=== PATIENT | female | born 2000 | race Caucasian/White ===

== ENCOUNTER 2019-12-21 13:09 | Emergency (ER) | payer OTHER, SELFPAY ==
[2019-12-21 13:19] VITALS: BP 128/82; PULSE 113; RESP 16; TEMP 36.6; O2SAT 100
--- NOTE | 2019-12-21 13:30 | ED.URI ---
HPI - URI/Sore Throat General Chief Complaint: Upper Respiratory Infection Stated Complaint: sore throat cough and aches Time Seen by Provider: 12/21/19 13:32 Source: patient History of Present Illness HPI Narrative: PATIENT PRESENTS WITH SORE THROAT NO TROUBLE SWALLOWING NO DROOLING NO NASAL CONGESTION NO SHORTNESS OF BREATH AND NO CHEST PAIN. NO FEVER DOES NOT HAVE ANY RECENT TRAVEL AND DENIES ANY EXPOSURE TO COVID 19. Patient states she went home from work yesterday due to her sore throat and needs a work note to return. Related Data Home Medications Medication Instructions Recorded Confirmed levonorgestrel-ethinyl estrad 1 tablet PO DAILY 12/21/19 12/21/19 [Vienva] Allergies Allergy/AdvReac Type Severity Reaction Status Date / Time acetaminophen AdvReac Unknown Nausea and Verified 12/21/19 13:31 Vomiting Review of Systems Review of Systems: Narrative: CONSTITUTIONAL: Denies fever, chills, or sweats. EYES: Denies visual changes, redness, or discharge. ENT: Denies rhinorrhea, congestion, or otalgia. Reports sore throat CARDIOVASCULAR: Denies chest pain, palpitations, or edema. RESPIRATORY: Denies cough or dyspnea. GASTROINTESTINAL: Denies abdominal pain, nausea, vomiting, or diarrhea. GENITOURINARY: Denies dysuria or hematuria. SKIN: Denies rash or itching. MUSCULOSKELETAL: Denies back pain, joint pain, or myalgia. NEUROLOGIC: Denies headache, numbness, or weakness. PSYCHIATRIC: Denies anxiety or depression. PMFSH Comments At time of signature, agree with nursing past medical, surgical, social and family history. There is no relevant family history pertinent to the presenting complaint Exam Narrative: Exam Narrative: GENERAL: Well-appearing, well-nourished, and in no acute distress. HEAD: Normocephalic, atraumatic. EYES: PERRLA and EOMI. ENT: Nares clear, no rhinorrhea or epistaxis. Mucous membranes moist. Mild pharyngeal erythremia no exudate no trismus can open mouth fully NECK: Supple. CHEST: Clear to auscultation. No respiratory distress. HEART: Regular rate and rhythm. No murmur heard. Normal peripheral pulses. ABDOMEN: Soft, nontender, nondistended, normal active bowel sounds. EXTREMITIES: Normal range of motion. No edema. SKIN: Warm, dry, no rash. NEURO: No focal deficits. Alert and oriented x3. Marta Coma Scale Eye Opening: Spontaneous 4 [place] Coma Scale Motor: Obeys Commands 6 [place] Coma Scale Verbal: Oriented 5 [place] Coma Scale Total 15 Course Vital Signs Vital signs: Vital Signs Temperature 36.6 C 12/21/19 13:19 Pulse Rate 113 H 12/21/19 13:19 Respiratory Rate 16 12/21/19 13:19 Blood Pressure 128/82 12/21/19 13:19 Pulse Oximetry 100 12/21/19 13:19 Temperature 36.6 C 12/21/19 13:19 Pulse Rate 113 H 12/21/19 13:19 Respiratory Rate 16 12/21/19 13:19 Blood Pressure 128/82 12/21/19 13:19 Pulse Oximetry 100 12/21/19 13:19 Discussed negative strep test with patient at today's visit. Discussed that culture will be available in 48 hours discussed with patient that we do not test for COVID 19 at this facility and to call [facility] for further guidance and evaluation. Discussed with patient according to her evaluation and symptoms she is low acuity. Instructed patient that we recommend quarantine herself for the next 14 days. MDM - URI/Sore Throat Differential Diagnosis Differential diagnosis: Likely upper respiratory infection, croup, otitis media, sinusitis, viral infection, bronchitis, influenza, pharyngitis and other Lab Data Labs: Strep Screen Presumptive Negative *(Reference Range: Negative)* Critical Care Time Critical Care Time Critical Care Time: No Discharge Plan Discharge Clinical Impression: Pharyngitis Patient Disposition: Home, Self-Care Condition: Stable Instructions: Antibiotic Form Additional Instructions: Increase fluids especially juices and water
== END 2019-12-21 13:47 | disposition home or self-care (01) ==
PROVIDERS: Emergency Provider Nurse Practitioner Family
DX: J02.9 Acute pharyngitis, unspecified (principal)
CPT/HCPCS: 87081; 87880; 99213; G0463